=== PATIENT | male | born 1980 | race Caucasian/White ===

== ENCOUNTER 2021-04-22 00:28 | Inpatient (IN) | payer OTHER, SELFPAY ==
[2021-04-22] VITALS (24 sets, daily range): BP systolic 83–120
[~2021-04-22] VITALS: Ht 182.9 cm; Wt 102.1 kg
[2021-04-22] MEDS ORDERED: NS 1000 ML IV.SOLN IV ONE (01:00)
[2021-04-22] MEDS ORDERED: ACETAMINOPHEN 500 MG TABLET PO ONE (01:00)
--- NOTE | 2021-04-22 01:37 | NUR ---
PT TO BED 8 FOR EVALUATION WITH REPORT GIVEN TO PANKAJ NELSON WHO WILL ASSUME CARE.
[2021-04-22 01:55] LABS: BILIRUBIN,URINE 1+ (NEGATIVE); BLOOD, URINE 3+ (NEGATIVE); CLARITY/URINE CLEAR (CLEAR); COLOR,URINE YELLOW (YELLOW); GLUCOSE,URINE NEGATIVE (NEGATIVE); KETONES,URINE NEGATIVE (NEGATIVE); LEUKOCYTE ESTERASE ,URINE NEGATIVE (NEGATIVE); NITRITE, URINE NEGATIVE (NEGATIVE); PH,URINE 5.5 (5.0-8.0); PROTEIN URINE 3+ (NEGATIVE); UROBILINOGEN,URINE 0.2 (0.2-1.0)
--- NOTE | 2021-04-22 01:58 | NUR ---
Dr. Doherty [facility] for pt eval
[2021-04-22 02:00] LABS: BASOPHILS # (AUTO) 0.1 K/uL (0.0-0.2); BASOPHILS % (AUTO) 0.4 % (0.0-2.0); EOSINOPHILS # (AUTO) 0.2 K/uL (0.0-0.4); EOSINOPHILS % (AUTO) 1.3 % (0.0-4.0); HEMATOCRIT 39.6 % (36-54); MEAN CORPUSCULAR HEMOGLOBIN 28 pg (27-31); MEAN CORPUSCULAR HGB CONC 33 % (32-36); MEAN CORPUSCULAR VOLUME 85 fL (79.0-98.0); MONOCYTES # (AUTO) 0.9 K/uL (0.0-1.0); MONOCYTES % (AUTO) 5.4 % (1.7-9.3); NEUTROPHILS # (AUTO) 13.9 K/uL (1.8-7.7); NEUTROPHILS % (AUTO) 86.9 % (40.0-70.0); PLATELET COUNT (AUTO) 191 K/uL (130-430); RED BLOOD CELL COUNT(AUTO) 4.65 MIL/uL (4.2-6.2); RED CELL DISTRIBUTION WIDTH 13.6 % (9.0-15.0)
--- NOTE | 2021-04-22 02:00 | NUR ---
Pt BIB family to ED C/O intermittent fever x 2 days. Reports cough today. Self medicated at home with both Tylenol + Motrin at 1900. VSS no s/s of acute distress Resting on Exablox rails up
[2021-04-22 02:09] LABS: CALCIUM 8.5 mg/dL (8.4-11.0); CREATININE 1.86 mg/dL (0.55-1.30); POTASSIUM 4.2 mmol/L (3.5-5.1)
[2021-04-22 02:15] LABS: ALBUMIN 2.9 g/dL (3.4-4.8); TOTAL BILIRUBIN 0.7 mg/dL (0.0-1.0)
--- NOTE | 2021-04-22 02:20 | NUR ---
Lab called to inform ER MD of elevated Trop level: 30.40
[2021-04-22 02:25] LABS: BACTERIA,URINE FEW /HPF (None Seen); FINE GRANULAR CASTS,URINE 0-10 /LPF (None Seen); WBC,URINE 0-3 /HPF (0-3)
--- NOTE | 2021-04-22 02:40 | NUR ---
Dr. Doherty orders Trop level to be re-drawn, Lab aware
[2021-04-22] MEDS ORDERED: levalbuterol HCL 0.63 MG/3 ML VIAL.NEB INH ONE (03:00)
[2021-04-22] MEDS ORDERED: AZITHROMYCIN 500 MG in NS 250 ML IV ONE (03:00)
[2021-04-22] MEDS ORDERED: AZITHROMYCIN 500 MG/VIAL (ZITHROMAX) IV ONE (03:26)
[2021-04-22] MEDS ORDERED: cefTRIAXone 2 GM VIAL ONE (03:27)
--- NOTE | 2021-04-22 03:39 | NUR ---
IVF + IV antibiotx well tolerated
--- NOTE | 2021-04-22 04:39 | NUR ---
Pt remains in stable condition on Dr. Doherty ordered Bi-Pap Respiratory, well tolerated
[2021-04-22] MEDS ORDERED: ASPIRIN 325 MG TABLET PO ONE (05:30)
--- NOTE | 2021-04-22 05:45 | NUR ---
Dr. Sunshine called in given Adm to ICU orders, ICU notified of need for bed assignment
[2021-04-22] MEDS ORDERED: HEPARIN SODIUM,PORCINE 5,000 UNITS/ML VIAL ONE (05:51)
--- NOTE | 2021-04-22 05:55 | NUR ---
Heparin 5000 units SubQ given as ordered, well tolerated
--- NOTE | 2021-04-22 06:00 | NUR ---
No Coag lab ordered, however, Dr. Sunshine want Heparin SubQ x 1 now
--- NOTE | 2021-04-22 06:00 | NUR ---
RT bedside for BiPap adjustment and update
[2021-04-22] MEDS: HEPARIN SODIUM,PORCINE 5,000 UNITS/ML VIAL SUBCUT SCH ×3 (06:28→20:22)
--- NOTE | 2021-04-22 06:30 | NUR ---
Awaiting RT to arrive at bedside for Pt transport to ICU 2
--- NOTE | 2021-04-22 06:40 | NUR ---
Pt placed to ICU bed 02, connected to real estate loan officer, oriented to unit and call greenberg. Pt arrives with oximizer in place, mild respiratory effort. Dry cough noted with wheezing to BBS. RT arrives and pt placed on BiPAP 16, 12/5, 80%. 20 GA PIV to RAC. Pt denies c/o pain or discomfort and no needs verbalized at this time.
--- NOTE | 2021-04-22 06:40 | NUR ---
Transfer to ICU via ACLS protocol. Licensed nurse present. IV present no signs or symptoms of infiltration.
--- NOTE | 2021-04-22 06:59 | NUR ---
CONSULTATION PAGED/CALLED Reason for Consultation: ELEVATED TROPONIN Person Who was Notified: LILLIAM Consulting Physician: DR. BURTON Hat Lacer Specialty: CARDIOLOGY Ordering Physician: DR. PUTNAM
--- NOTE | 2021-04-22 07:10 | NUR ---
Pt care endorsed to oncoming RN.
--- NOTE | 2021-04-22 07:30 | NUR ---
Opening Note Received bedside report from endorsing RN for continuation of care.
[2021-04-22] MEDS ORDERED: ONDANSETRON HCL 4 MG/2 ML VIAL IVP PRN (08:00)
[2021-04-22] MEDS ORDERED: ACETAMINOPHEN 500 MG TABLET PO PRN (08:00)
[2021-04-22] MEDS ORDERED: NITROGLYCERIN 0.4 MG TAB.SUBL SL PRN (08:00)
[2021-04-22] MEDS ORDERED: IPRATROPIUM/ALBUTEROL SULFATE 3 ML AMPUL.NEB (DUONEB) INH PRN (08:00)
[2021-04-22] MEDS ORDERED: ZOLPIDEM TARTRATE 5 MG TABLET PO PRN (08:00)
[2021-04-22] MEDS ORDERED: HYDROcodone/ACETAMIN 7.5-325 MG TAB PO PRN (08:00)
[2021-04-22] MEDS ORDERED: DOCUSATE SODIUM 100 MG/10 ML UDC PO PRN (08:00)
[2021-04-22] MEDS ORDERED: IPRATROPIUM/ALBUTEROL SULFATE 3 ML AMPUL.NEB (DUONEB) INH ONE (08:00)
--- NOTE | 2021-04-22 08:35 | NUR ---
Consult called to Dr. Bryant. Spoke with Deepak at the exchange. Also paged consult to Dr. Giron's pager.
--- NOTE | 2021-04-22 08:43 | NUR ---
Informed Dr. Sunshine regarding pt's concerns with cough. New orders made for phenergan with codeine 5 mg PO q4hr PRN.
[2021-04-22] MEDS ORDERED: PROMETHAZINE HCL/CODEINE 6.25-10 mg/5 mL UDC PO PRN ×2 (08:45)
--- NOTE | 2021-04-22 08:45 | NUR ---
HIGH ALERT NOTE: Called Dr. Brock Sunshine back identified within the medical roster to verify physician authenticity.
[2021-04-22] MEDS: METOPROLOL TARTRATE 25 MG TABLET PO SCH ×2 (09:00→20:21)
--- NOTE | 2021-04-22 09:03 | NUR ---
Phenergan with codeine unavailable per pharmacy, order changed to Robitussin AC 5mg PO Q4HR PRN. aware.
[2021-04-22] MEDS: ASPIRIN 81 MG TAB.CHEW PO SCH (09:06)
[2021-04-22] MEDS: PANTOPRAZOLE SODIUM 40 MG TAB PO SCH (09:06)
[2021-04-22] MEDS: ATORVASTATIN 10 MG TABLET PO SCH (09:08)
[2021-04-22] MEDS ORDERED: guaiFENesin 200 MG/CODEINE 20 MG/ 10 ML UDC PO PRN (09:15)
[2021-04-22 09:21] LABS: BASOPHILS % (AUTO) 0.3 % (0.0-2.0); EOSINOPHILS # (AUTO) 0.1 K/uL (0.0-0.4); EOSINOPHILS % (AUTO) 0.9 % (0.0-4.0); HEMATOCRIT 38.6 % (36-54); HEMOGLOBIN 12.6 g/dL (14.0-18.0); LYMPHOCYTES # (AUTO) 1.3 K/uL (1.0-5.5); LYMPHOCYTES % (AUTO) 9.2 % (20.5-51.5); MEAN CORPUSCULAR HEMOGLOBIN 28 pg (27-31); MEAN CORPUSCULAR HGB CONC 33 % (32-36); MEAN CORPUSCULAR VOLUME 84 fL (79.0-98.0); MONOCYTES # (AUTO) 0.8 K/uL (0.0-1.0); MONOCYTES % (AUTO) 5.9 % (1.7-9.3); NEUTROPHILS # (AUTO) 11.7 K/uL (1.8-7.7); NEUTROPHILS % (AUTO) 83.7 % (40.0-70.0); PLATELET COUNT (AUTO) 169 K/uL (130-430); RED BLOOD CELL COUNT(AUTO) 4.57 MIL/uL (4.2-6.2); RED CELL DISTRIBUTION WIDTH 13.8 % (9.0-15.0)
[2021-04-22] MEDS: PIPERACILLIN/TAZO 3.375/DEX-IS 50 ML IV SCH ×3 (09:23→20:20)
[2021-04-22] MEDS: NACL 0.9% 1,000 ML IV SCH ×2 (09:23→20:20)
[2021-04-22 09:25] LABS: INR 1.2 (0.80-1.20); PROTHROMBIN TIME 12.3 SECS (9.5-12.5)
--- NOTE | 2021-04-22 09:28 | NUR ---
P.T. NOTES HOLD P.T. EVAL, ELEV TROPONIN=25.594; FF UP WHEN ABLE.
--- NOTE | 2021-04-22 09:30 | NUR ---
Family as bedside of patient.
[2021-04-22 09:35] LABS: ALBUMIN 2.3 g/dL (3.4-4.8); CALCIUM 7.5 mg/dL (8.4-11.0); CREATININE 1.82 mg/dL (0.55-1.30); FREE T4 (FREE THYROXINE) 0.9 ng/dl (0.8-1.5); PHOSPHORUS 2.8 mg/dL (2.7-4.5); POTASSIUM 4.5 mmol/L (3.5-5.1); THYROID STIMULATING HORMONE 2.66 uIu/mL (0.36-3.74); TOTAL BILIRUBIN 0.6 mg/dL (0.0-1.0)
--- NOTE | 2021-04-22 10:00 | NUR ---
Pt's given some of patient's belongings to take home, brought cell phone metals analyst to keep with patient at bedside.
--- NOTE | 2021-04-22 10:44 | NUR ---
Spoke with Dr. Encinas anesthesiologist on the phone and she said when the patients 02 sat is 96% on 2-3L NC of oxygen, the patient can be discharged from recovery room ( ICU 7) and transferred back to her room on Med Surg.
[2021-04-22] MEDS: IPRATROPIUM/ALBUTEROL SULFATE 3 ML AMPUL.NEB (DUONEB) INH SCH ×3 (11:00→23:20)
[2021-04-22 11:03] LABS: C-REACTIVE PROTEIN QUANT 32.8 mg/dL (0-0.5)
[2021-04-22] MEDS: AZITHROMYCIN 500 MG in NS 250 ML IV SCH (11:29)
[2021-04-22] MEDS ORDERED: PROPOFOL DRIP 100 ML IV ONE (15:12)
--- NOTE | 2021-04-22 15:20 | NUR ---
Intubation/Femoral Line/Dr. Giron Pt noted to be tachypneic and SOB on bipap. Dr. Giron rounding and spoke with pt and pt's Gaurang and pt's friend Lo regarding current situation and need to intubate. Pt agreed with intubation. Pt intubated with ETT 7.5, 25 cm lip line. Verified with CXR. Dr. Giron also placed femoral line for drips and states he still wants PICC line to be present. NGT inserted and verified via CXR.
[2021-04-22] MEDS ORDERED: FUROSEMIDE 40 MG/4 ML VIAL ONE (15:42)
[2021-04-22] MEDS ORDERED: FUROSEMIDE 40 MG/4 ML VIAL IVP ONE (15:45)
--- NOTE | 2021-04-22 16:08 | NUR ---
15[address] ASS[address]ED IN INTUBATION PER DR. ROSA. CO2 COLOR CHANGE, BILAT BS HEARD, PT BAGGED THEN PLACED ON VENT. ETT 7.5@ 25CM LL. WILL CONT TO MONITOR. Addendum: 04/22/21 at 1610 by Danielle Mckeon RT Amended: Links added.
--- NOTE | 2021-04-22 16:30 | NUR ---
BOGGS CATH: # 16 FR Boggs catheter with 10 cc bulb inserted with use of sterile technique. Bulb inflated with 10 cc sterile water. Immediate return of yellow urine noted. Bedside drainage bag placed below level of bladder. Pt tolerated procedure well.
--- NOTE | 2021-04-22 16:30 | NUR ---
PICC line inserted by PICC line RN. Verified placement
[2021-04-22] MEDS ORDERED: MIDAZOLAM IN NACL,ISO-OSMOT/PF 100 ML IV ONE (16:32)
[2021-04-22] MEDS: PROPOFOL DRIP 100 ML IV PRN ×2 (16:57→21:04)
--- NOTE | 2021-04-22 17:07 | NUR ---
[facility] Called [facility] and requested the transfer center. Transferred to the transfer center and could only leave a voice message which indicated my call would be returned within 15 minutes. Message left.
--- NOTE | 2021-04-22 17:11 | NUR ---
[facility] # [phone]
[2021-04-22] MEDS: VANCOMYCIN HCL 1 GM/NS PREMIX 250 ML IV SCH ×2 (17:14→18:00)
[2021-04-22] MEDS: methylPREDNISolone SOD SUCC/PF 62.5 MG/ML VIAL IVP SCH ×2 (17:15→21:10)
[2021-04-22] MEDS: MIDAZOLAM IN NACL,ISO-OSMOT/PF 100 ML IV PRN (17:24)
--- NOTE | 2021-04-22 17:26 | NUR ---
[facility] [phone] transfer center direct number called and received a recorded message to leave my information and I would receive a return call back. Message left with contact information.
--- NOTE | 2021-04-22 17:45 | NUR ---
TONIE - Received call back from Hailey [phone] with the transfer center. Fax number [phone]. Clinical questions answered. She requested chart to be faxed. She also requested cardiology H/P to be faxed. This dictation is pending at this time. Will have the awake overnight counselor nuclear monitoring technician fax info over.
--- NOTE | 2021-04-22 19:15 | NUR ---
Closing Endorsement given to RN for continuation of care.
--- NOTE | 2021-04-22 19:30 | NUR ---
Opening Note Received report from AM nurse using SBAR approach.
--- NOTE | 2021-04-22 19:45 | NUR ---
Family Called patient's and updated her about patient's condition.
--- NOTE | 2021-04-22 19:48 | NUR ---
PAGED DR. ROSA [phone] NUMERIC PAGE
--- NOTE | 2021-04-22 20:06 | NUR ---
HIGH ALERT NOTE: Called Dr. Cash back at 2005 identified within the medical roster to verify physician authenticity. Morphine 4 mg
--- NOTE | 2021-04-22 20:06 | NUR ---
Called Dr. Jorge. New orders received.
[2021-04-22] MEDS ORDERED: MORPHINE 4 MG INJ. 4 MG/ML VIAL IVP PRN (20:15)
--- NOTE | 2021-04-22 20:30 | NUR ---
Family Family friend, Lo, called and asked for update. Lo is verified by patient's to get information.
[2021-04-23] VITALS (29 sets, daily range): BP systolic 96–132
[2021-04-23] MEDS: VANCOMYCIN HCL 1 GM/NS PREMIX 250 ML IV SCH ×2 (01:12→12:05)
[2021-04-23] MEDS: PIPERACILLIN/TAZO 3.375/DEX-IS 50 ML IV SCH ×4 (01:56→20:33)
[2021-04-23] MEDS: IPRATROPIUM/ALBUTEROL SULFATE 3 ML AMPUL.NEB (DUONEB) INH SCH ×6 (04:25→23:25)
[2021-04-23] MEDS: methylPREDNISolone SOD SUCC/PF 62.5 MG/ML VIAL IVP SCH ×3 (05:32→21:13)
[2021-04-23] MEDS: NACL 0.9% 1,000 ML IV SCH ×2 (05:35→17:21)
[2021-04-23] MEDS: MIDAZOLAM IN NACL,ISO-OSMOT/PF 100 ML IV PRN ×2 (06:22→20:44)
[2021-04-23 06:34] LABS: BASOPHILS % (AUTO) 0.3 % (0.0-2.0); EOSINOPHILS % (AUTO) 0.2 % (0.0-4.0); HEMATOCRIT 37.7 % (36-54); HEMOGLOBIN 12.3 g/dL (14.0-18.0); LYMPHOCYTES # (AUTO) 0.9 K/uL (1.0-5.5); LYMPHOCYTES % (AUTO) 7.5 % (20.5-51.5); MEAN CORPUSCULAR HEMOGLOBIN 28 pg (27-31); MEAN CORPUSCULAR HGB CONC 33 % (32-36); MEAN CORPUSCULAR VOLUME 85 fL (79.0-98.0); MONOCYTES # (AUTO) 0.4 K/uL (0.0-1.0); MONOCYTES % (AUTO) 3.8 % (1.7-9.3); NEUTROPHILS # (AUTO) 10.3 K/uL (1.8-7.7); NEUTROPHILS % (AUTO) 88.2 % (40.0-70.0); PLATELET COUNT (AUTO) 241 K/uL (130-430); RED BLOOD CELL COUNT(AUTO) 4.45 MIL/uL (4.2-6.2); RED CELL DISTRIBUTION WIDTH 14.2 % (9.0-15.0); WHITE BLOOD COUNT (AUTO) 11.7 K/uL (4.8-10.8)
[2021-04-23] MEDS: PROPOFOL DRIP 100 ML IV PRN ×2 (06:44→11:53)
[2021-04-23 07:08] LABS: ALBUMIN 2.1 g/dL (3.4-4.8); CREATININE 1.96 mg/dL (0.55-1.30); POTASSIUM 4.7 mmol/L (3.5-5.1); TOTAL BILIRUBIN 0.6 mg/dL (0.0-1.0)
--- NOTE | 2021-04-23 07:35 | NUR ---
Opening note patient resting in bed, no signs of distress, sedated, intubated, vent settings AC 20, TV 500, Fi02 80%, peep 10, lipline 25, Tube 7.5, plan is to wean Fio2 as tolerated, NGT in place to the right nares, clamped, right upper arm PICC line is patent and infusing well, no s/s of infiltration, Drips: levophed at 0.15mcg, Diprivan at 40, Versed at 7, NS at 90ml/hour, continuing to monitor tolerance, Campos Catheter in place draining to gravity, continuing to monitor the patient, fall, isolation and aspiration precautions in place.
--- NOTE | 2021-04-23 07:40 | NUR ---
[facility]: Called [facility] and requested the transfer center. Transferred to the transfer center and could only leave a voice message which indicated my call would be returned within 15 minutes. Message left. Addendum: 04/23/21 at 0754 by Jose Armando Mckeon RN Fax sent with patient information/clinicals/chart to [facility] per their request - awaiting call back from [facility] at this time.
--- NOTE | 2021-04-23 07:53 | NUR ---
[facility] SPOKE WITH SHANT: SPOKE WITH SHANT AT [facility] TRANSFER CENTER, FAX # OBTAINED TO SEND CLINICAL PACKET, PACKET FAXED TO [phone], PENDING RETURN CALL AT THIS TIME TO DETERMINE IF [facility] WILL ACCEPT PATIENT. PRIMARY NURSE MADE AWARE.
--- NOTE | 2021-04-23 08:11 | NUR ---
Dr. Sunshine rounds assessed patient, informed MD of potential [facility] transfer, MD is aware and asking to call with an update later on. Dr. Sunshine stated okay to given scheduled medications via NGT, will follow up.
[2021-04-23] MEDS: ASPIRIN 81 MG TAB.CHEW PO SCH (08:19)
[2021-04-23] MEDS: PANTOPRAZOLE SODIUM 40 MG TAB PO SCH (08:19)
[2021-04-23] MEDS: ATORVASTATIN 10 MG TABLET PO SCH (08:19)
[2021-04-23] MEDS: METOPROLOL TARTRATE 25 MG TABLET PO SCH ×2 (08:20→21:13)
[2021-04-23] MEDS: HEPARIN SODIUM,PORCINE 5,000 UNITS/ML VIAL SUBCUT SCH ×2 (08:21→20:39)
[2021-04-23] MEDS: NOREPINEPHRINE BITARTRATE 8 MG in NS 242 ML IV PRN ×3 (08:24→20:43)
[2021-04-23 08:37] LABS: BARBITURATE, URINE NEGATIVE (NEG <=200); BENZODIAZEPINE, URINE NEGATIVE (NEG <=150); CANNABINOID, URINE NEGATIVE (NEG <=50); COCAINE, URINE NEGATIVE (NEG <=150); METHAMPHETAMINES SCREEN,URINE NEGATIVE (NEG <=500); OPIATE, URINE NEGATIVE (NEG <=100); PHENCYCLIDINE SCREEN,URINE NEGATIVE (NEG <=25); UR TRICYCLIC ANTIDEPRESSANTS NEGATIVE (NEG <=300); URINE AMPHETAMINE NEGATIVE (NEG <=500); URINE METHADONE NEGATIVE (NEG <=200); URINE OXYCODONE SCREEN NEGATIVE (NEG <=100); URINE PROPOXYPHENE SCREEN NEGATIVE (NEG <=300)
--- NOTE | 2021-04-23 08:40 | NUR ---
Family visit the patient's and friend here to visit the patient, updated on patient's condition at this time, the patient's signed consent for possible transfer to higher level of care today, will keep them updated on patient status and possible transfer.
[2021-04-23] MEDS ORDERED: POTASSIUM CHLORIDE 20 MEQ TAB.PRT.SR PO PRN (09:00)
--- NOTE | 2021-04-23 09:00 | NUR ---
Spoke with Dr. Giron regarding patient status, Dr. Giron requesting RT service to titrate the peep down, will follow up. Per Dr. iGron if patient is stable enough please get CT chest without contrast done today, will follow up.
--- NOTE | 2021-04-23 09:35 | NUR ---
Spoke with Dr. Baca informed of patient's condition and that clinical reports were sent to [facility] pending approval at this time, inquiring regarding lab orders from yesterday, made Dr. Baca aware that the lab needs approval from the Educational/Development Assistant, she verbalized understanding and is awaiting lab results, will follow up.
--- NOTE | 2021-04-23 10:39 | NUR ---
Spoke with Dr. Fragoso request regarding lab tests ordered by Dr. Baca - lab needs approval prior to drawing for certain viral serologies - Dr. Fragoso did give approval - notified Lab and spoke with Marilee, will follow up as needed.
--- NOTE | 2021-04-23 12:44 | NUR ---
LISA FROM [facility]: SPOKE WITH LISA AT [facility], HE STATED THAT THE [facility] TAXI DANCER HAS REQUESTED THE CONTACT INFORMATION FOR DR. ROSA, INFORMATION GIVEN TO LISA [facility].
[2021-04-23] MEDS: AZITHROMYCIN 500 MG in NS 250 ML IV SCH (14:00)
--- NOTE | 2021-04-23 14:18 | NUR ---
Patient off the unit to CT scan at this time, accompanied by Lashell LIRA.
--- NOTE | 2021-04-23 14:30 | NUR ---
Patient back on the unit VSS, continuing to monitor.
[2021-04-23] MEDS ORDERED: NALOXONE HCL 0.4 MG/ML AMP (NARCAN) IVP PRN (14:45)
--- NOTE | 2021-04-23 14:50 | NUR ---
Dr. Giron rounds assessed patient, stop Dip drip and changed to Morphine drip, will follow up. Addendum: 04/23/21 at 1509 by Jose Armando Mckeon RN Dr. Giron titrated Peep to 6, RT aware.
--- NOTE | 2021-04-23 15:18 | NUR ---
DR. RSOA / [facility] DISCUSSION: DR. ROSA SPOKE WITH MD AT [facility] IN [place] DEPT. PER DR. ROSA [facility] WILL ACCEPT PATIENT.
--- NOTE | 2021-04-23 15:20 | NUR ---
LISA AT [facility] CALLED UNIT: PER LISA NEGATIVE COVID TEST NEEDED TO FAXED, TEST PRINTED AND FAXED TO NUMBER GIVEN.
--- NOTE | 2021-04-23 15:24 | NUR ---
LISA @ [facility] PER LISA [facility] WILL ACCEPT PATIENT TO BE ADMITTED AT [facility]. PENDING ROOM PLACEMENT AT THIS TIME. PER LISA HE WILL CALL UNIT WITH ADDITIONAL INFORMATION.
--- NOTE | 2021-04-23 15:27 | NUR ---
[facility]: SPOKE WITH DICKSON AT [facility], CRITICAL CARE TRANSPORT HAS BEEN ARRANGED FOR CHIEF WARDEN AT [facility] AND TRANSPORT PATIENT TO [facility] FOR HIGHER LEVEL OF CARE.
[2021-04-23] MEDS: MORPHINE SULFATE IN 0.9 % NACL 100 ML IV PRN (15:30)
--- NOTE | 2021-04-23 16:37 | NUR ---
14[address] BACK FROM TRANSPORTING TO CT SCAN. PT BACK ON VENT. PT TOLERATING WELL. Addendum: 04/23/21 at 1638 by Danielle Mckeon RT Amended: Links added.
--- NOTE | 2021-04-23 16:56 | NUR ---
1620 PT DESAT PLACED ON 100% SUCTIONED PT. TITRATED FIO2 TO .75 PT SAT 94%. WILL CONT TO MONITOR. Addendum: 04/23/21 at 1657 by Danielle Mckeon RT Amended: Links added.
--- NOTE | 2021-04-23 18:48 | NUR ---
Closing note patient resting in bed, no signs of distress, ETT 7.5, 25 lipline, AC 20 TV 500 Fi02 75%, Peep 6, oxygen saturation is 98% currently, awaiting bed at [facility], Campos Catheter in place draining to gravity, PICC and central line intact and infusing well, all needs met, will endorse report to [facility] shift nurse. Rest of patient belongings sent home with his . Morphine drip at 5, Versed at 7, Levophed at 0.12, NS at 90.
--- NOTE | 2021-04-23 19:30 | NUR ---
Opening Note Received report from AM nurse using SBAR approach.
--- NOTE | 2021-04-23 19:48 | NUR ---
[facility] [phone] SPOKE WITH PEDRO ARRANGED WILL CALL FOR ACLS TRANSPORT @ 0100. PENDING BED AVAILABILITY FROM [facility]
--- NOTE | 2021-04-23 21:38 | NUR ---
Family called asking for an update. Provided update for patient.
--- NOTE | 2021-04-23 22:30 | NUR ---
Talked to Regina from [facility] ambulance. She stated they can come pick the patient up at 0100
[2021-04-24] VITALS (7 sets, daily range): BP systolic 113–129
[2021-04-24] MEDS: VANCOMYCIN HCL 1 GM/NS PREMIX 250 ML IV SCH (00:44)
--- NOTE | 2021-04-24 01:18 | NUR ---
spoke to CHINO at [facility] transfer to get an estimated time on a bed for the patient. Stated no beds available at the moment
--- NOTE | 2021-04-24 02:08 | NUR ---
Called [facility] and went straight to [facility]ctil.
--- NOTE | 2021-04-24 02:45 | NUR ---
[facility] [place] josefina spoke to Kori from [facility] . Room Number 8678. Accepting Physician: dr. Herman
[2021-04-24] MEDS: PIPERACILLIN/TAZO 3.375/DEX-IS 50 ML IV SCH (03:13)
--- NOTE | 2021-04-24 03:25 | NUR ---
Spoke to Kori and willing to extend time for keeping the patient's room.
[2021-04-24] MEDS: IPRATROPIUM/ALBUTEROL SULFATE 3 ML AMPUL.NEB (DUONEB) INH SCH (03:35)
[2021-04-24] MEDS: NOREPINEPHRINE BITARTRATE 8 MG in NS 242 ML IV PRN (04:00)
[2021-04-24] MEDS: MORPHINE SULFATE IN 0.9 % NACL 100 ML IV PRN (04:00)
--- NOTE | 2021-04-24 04:30 | NUR ---
AMBULANCE ARRIVED Gave report to [facility]. Rescue 112. [facility]
--- NOTE | 2021-04-24 05:26 | NUR ---
report given to Brittany LIRA using SBAR approach. Phone number to contact is [phone]
[2021-04-24] MEDS ORDERED: ROCURONIUM BROMIDE 10 MG/ML (ZEMURON) IV ONE (05:29)
[2021-04-24] MEDS ORDERED: ETOMIDATE 20 MG/ 10 ML VIAL (AMIDATE) IVP ONE (05:29)
--- NOTE | 2021-04-24 05:30 | NUR ---
PT TRANSFERRED Report given to Brittany at 0535. Transfer packet with Transfer Orders and Medication Reconciliation form given to EMT with report. Exitcare provided. [facility] ID band removed, replaced with ID band with pt's name and . IV catheter removed, intact and dressing applied, no active bleeding. All belongings sent with patient. Patient left floor via gurney escorted by EMT in no distress.
--- NOTE | 2021-04-24 05:30 | NUR ---
rescue 112 left with patient. Patienthad no signs or symptoms of respiratory distress
--- NOTE | 2021-04-24 05:57 | NUR ---
[facility] called back stating that their unit does not have a negative air pressure room so they are going to transfer the patient to another unit.
--- NOTE | 2021-04-24 05:58 | NUR ---
Patient is transferred to the SICU to room 6427. Report given to Maria Elena. Gave report using SBAR approach. Phone number to contact unit is [phone]
[2021-04-24] MEDS: NACL 0.9% 1,000 ML IV SCH (06:00)
[2021-04-24] MEDS: methylPREDNISolone SOD SUCC/PF 62.5 MG/ML VIAL IVP SCH (06:00)
== END 2021-04-24 05:30 | disposition short-term general hospital (02) | DRG 871 ==
LOC: SED 00:28 → SIC 05:36
PROVIDERS: ADMIT Family Medicine; ATTEND Family Medicine
PROC: 0BH17EZ Insertion of Endotracheal Airway into Trachea, Via Natural or Artificial Opening (ICD-10-PCS; principal; 2021-04-22)
PROC: 02HV33Z Insertion of Infusion Device into Superior Vena Cava, Percutaneous Approach (ICD-10-PCS; 2021-04-22)
PROC: B548ZZA Ultrasonography of Superior Vena Cava, Guidance (ICD-10-PCS; 2021-04-22)
PROC: 5A09357 Assistance with Respiratory Ventilation, Less than 24 Consecutive Hours, Continuous Positive Airway Pressure (ICD-10-PCS; 2021-04-22)
PROC: 5A1945Z Respiratory Ventilation, 24-96 Consecutive Hours (ICD-10-PCS; 2021-04-22)
DX: A41.9 Sepsis, unspecified organism (principal); I21.A1 Myocardial infarction type 2; I40.9 Acute myocarditis, unspecified; J12.9 Viral pneumonia, unspecified; J96.01 Acute respiratory failure with hypoxia; N17.0 Acute kidney failure with tubular necrosis; E44.0 Moderate protein-calorie malnutrition; E87.1 Hypo-osmolality and hyponatremia; I31.9 Disease of pericardium, unspecified; D68.59 Other primary thrombophilia; I24.9 Acute ischemic heart disease, unspecified; I38 Endocarditis, valve unspecified; E86.0 Dehydration; R65.20 Severe sepsis without septic shock; Z20.822 Contact with and (suspected) exposure to COVID-19; Z83.3 Family history of diabetes mellitus; Z68.30 Body mass index [BMI] 30.0-30.9, adult
CPT/HCPCS: 36415; 36600; 71045; 71250-TC; 76376; 80053; 80061; 80307; 81000; 82150; 82803-TC; 83036; 83605; 83615; 83690; 83735; 83880; 84100; 84439; 84443; 84484; 85025; 85379; 85610-TC; 85651-TC; 85730-TC; 86140; 86480; 86635; 86710; 86738; 87040-TC; 87081; 87086; 87449; 93005; 93306; 94002; 94003; 94640; 94660; 96361; 96365; 96368; 99291; J0456; J0696; J1644; J1940; J2270; J2543; J2704; J2930; J3370; J3490; J7050; J7614; U0003